=== PATIENT | female | born 1960 | race Caucasian/White ===

== ENCOUNTER 2019-02-07 11:30 | Emergency (ER) | payer MEDICARE ==
--- NOTE | 2019-02-07 12:56 | EDM.PDOC ---
ED HPI GENERAL MEDICAL PROBLEM - General Chief Complaint: General Stated Complaint: POSSIBLE EAR INFECTION Time Seen by Provider: 02/07/19 12:35 Source of Information: Reports: Patient History Limitations: Reports: No Limitations - History of Present Illness INITIAL COMMENTS - FREE TEXT/NARRATIVE: 58-year-old female with a history of brain surgery has been feeling unsteady intermittently over the past 2 days and is wondering if she has an "ear infection". She has a small amount of facial pressure, no sore throat or fever. Denies cough or shortness of breath. She felt much better last night but this morning she felt like she had to hold onto things. She has an appointment on Tuesday with her neurologist and is getting an MRI of her brain. Duration: Day(s): (Symptoms for 2 days) Associated Symptoms: Reports: Other (Some left ear pressure and facial pressure , mild). Denies: Chest Pain, Cough, Fever/Chills, Headaches, Nausea/Vomiting, Shortness of Breath Left Ear Pain Score (Numeric/FACES): 5 - Related Data Allergies Allergy/AdvReac Type Severity Reaction Status Date / Time metformin Allergy Cannot Verified 02/07/19 12:29 Remember Penicillins Allergy Rash Verified 02/07/19 12:29 Sulfa (Sulfonamide Allergy Rash Verified 02/07/19 12:29 Antibiotics) Home Meds: Home Meds Omeprazole Magnesium [Prilosec Otc] 20 mg PO DAILY 02/07/19 [History] Potassium Chloride [Klor-Con M20] 1 tab PO DAILY 02/07/19 [History] Triamterene/Hydrochlorothiazid [Triamterene-HCTZ 37.5-25 MG] 0.5 tab PO DAILY [History] levETIRAcetam [Levetiracetam] 2,000 mg PO BID 02/07/19 [History] Past Medical History HEENT History: Reports: Hard of Hearing, Impaired Vision Cardiovascular History: Reports: Hypertension GYN PHYSICIAN History: Reports: Neurological History: Reports: Seizure, Other (See Below) Other Neuro History: Brain surgery Endocrine/Metabolic History: Reports: Diabetes, Type II Hematologic History: Reports: Blood Transfusion(s) - Infectious Disease History Infectious Disease History: Reports: Chicken Pox - Past Surgical History HEENT Surgical History: Reports: Eye Surgery, Other (See Below) 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 Denies: Fever, Chills HEENT: Reports: Ear Pain (Especially in the left), Sinus Problem (Mild pressure) Respiratory: Denies: Shortness of Breath, Cough Skin: Reports: No Symptoms Neurological: Reports: Dizziness, Other (Feels unsteady). Denies: Headache ED EXAM, GENERAL - Physical Exam Exam: See Below Exam Limited By: No Limitations General Appearance: Alert, No Apparent Distress Ears: Normal TMs Throat/Mouth: Normal Inspection Head: Atraumatic Respiratory/Chest: No Respiratory Distress, Lungs Clear Neurological: Alert, Oriented, Other (Negative Romberg, no pronator drift) Psychiatric: Normal Affect, Normal Mood Skin Exam: Warm, Dry Course - Vital Signs Last Recorded V/S: Last Vital Signs Temp 96.8 F 02/07/19 12:26 Pulse 71 02/07/19 12:26 Resp 16 02/07/19 12:26 BP 169/79 H 02/07/19 12:26 Pulse Ox 99 02/07/19 12:26 - Re-Assessments/Exams Free Text/Narrative Re-Assessment/Exam: 02/07/19 13:19 I do not see any evidence of an acute bacterial infection. She may have some vestibular neuritis but nothing that needs treatment or further workup at this time. She will return tomorrow if worsening or concerns, otherwise recheck with her neurologist on Tuesday as scheduled. Departure - Departure Time of Disposition: 13:06 Disposition: Home, Self-Care 01 Condition: Good Clinical Impression: Vestibular neuritis Qualifiers: Laterality: unspecified laterality Qualified Code(s): H81.20 - Vestibular neuronitis, unspecified ear - Discharge Information Instructions: Dizziness, [id number] Referrals: PCP,None [Primary Care Provider] - Forms: ED Department Discharge Care Plan Goals: Increase activity as tolerated and no medication changes at this time. Return anytime if you are worsening or develop other concerns. Otherwise recheck on Tuesday as scheduled.
== END 2019-02-07 13:06 | disposition home or self-care (01) ==
LOC: JP.ED 11:30
DX: H81.22 Vestibular neuronitis, left ear (principal); I10 Essential (primary) hypertension; E11.9 Type 2 diabetes mellitus without complications; Z88.0 Allergy status to penicillin; Z88.2 Allergy status to sulfonamides; Z88.8 Allergy status to other drugs, medicaments and biological substances; Z79.899 Other long term (current) drug therapy; Z87.891 Personal history of nicotine dependence
CPT/HCPCS: 99282